=== PATIENT | male | born 1980 | race Caucasian/White ===

== ENCOUNTER 2017-01-23 13:50 | Inpatient (IN) | payer OTHER ==
[2017-01-23 14:50] VITALS: BMI 32.3
--- NOTE | 2017-01-23 15:36 | HP ---
COWS - Scale Resting Pulse: 0= [place] 80 or Below Sweatin=Flushed/Facial Moisture Restless Observation: 1= Difficult to Sit Still Pupil Size: 0= Normal to Room Light Bone or Joint Aches: 2= Severe Diffuse Aches Runny Nose/ Eye Tearin= Runny Nose/Eyes GI Upset > 30mins: 2= Nausea/Diarrhea Tremor Observation: 2= Slight Tremor Visible Yawning Observation: 1= 1-2x During Session Anxiety or Irritability: 2=Irritable/Anxious Goose Flesh Skin: 0=Smooth Skin COWS Score: 14 CIWA Score - CIWA Score Nausea/Vomitin-Mild Nausea/No Vomiting Muscle Tremors: 4-Moderate,w/Arms Extend Anxiety: 4-Mod. Anxious/Guarded Agitation: 4-Moderately Restless Paroxysmal Sweats: 3 Orientation: 0-Oriented Tacttile Disturbances: 1-Very Mild Itch/Numbness Auditory Disturbances: 0-None Visual Disturbances: 0-None Headache: 0-None Present CIWA-Ar Total Score: 17 Admission ROS S - HPI Chief Complaint: Withdrawal sx. Allergies/Adverse Reactions: Allergies Allergy/AdvReac Type Severity Reaction Status Date / Time shellfish derived Allergy Severe Hives Verified 01/23/17 14:55 History of Present Illness: 36 y/o man with a long hx. of drug dependence is admitted for detox.pt. has been in previous detox,denies significant sobriety. Exam Limitations: No Limitations - Ebola screening Have you traveled outside of the country in the last 21 days: No Have you had contact with anyone from an Ebola affected area: No Do you have a fever: No - Review of Systems Constitutional: Diaphoresis EENT: reports: Nose Congestion Respiratory: reports: No Symptoms reported Cardiac: reports: No Symptoms Reported GI: reports: Nausea, Abdominal cramping : reports: No Symptoms Reported Musculoskeletal: reports: Back Pain Integumentary: reports: Sweating Neuro: reports: Tremors Endocrine: reports: No Symptoms Reported Hematology: reports: No Symptoms Reported Psychiatric: reports: No Sypmtoms Reported Other Systems: Reviewed and Negative Patient History - Patient Medical History Hx Anemia: No Hx Asthma: Yes Hx Chronic Obstructive Pulmonary Disease (COPD): No Hx Cancer: No Hx Cardiac Disorders: No Hx Congestive Heart Failure: No Hx Hypertension: No Hx Hypercholesterolemia: No Hx Pacemaker: No HX Cerebrovascular Accident: No Hx Seizures: No Hx Dementia: No Hx Diabetes: No Hx Gastrointestinal Disorders: Yes (GERD) Hx Liver Disease: No Hx Genitourinary Disorders: No Hx Sexually Transmitted Disorders: No Hx Renal Disease (ESRD): No Hx Thyroid Disease: No Hx Human Immunodeficiency Virus (HIV): No Hx Hepatitis C: No Hx Depression: Yes (controlled) Hx Suicide Attempt: No Hx Bipolar Disorder: No Hx Schizophrenia: No - Patient Surgical History Past Surgical History: Yes Hx Neurologic Surgery: No Hx Cataract Extraction: No Hx Cardiac Surgery: No Hx Lung Surgery: No Hx Breast Surgery: No Hx Breast Biopsy: No Hx Abdominal Surgery: Yes (Gastric sleeve bypass 2011) Hx Appendectomy: No Hx Cholecystectomy: No Hx Genitourinary Surgery: No Hx Section: No Hx Orthopedic Surgery: No Anesthesia Reaction: No - PPD History Previous Implant?: Yes Documented Results: Negative w/o proof Implanted On Prior [facility] Admission?: No PPD to be Administered?: Yes - Smoking Cessation Smoking history: Current every day smoker Aproximately how many cigarettes per day: 10 Cigars Per Day: 0 Hx Chewing Tobacco Use: No Initiated information on smoking cessation: Yes 'Breaking Loose' booklet given: 01/23/17 - Substance & Tx. History Hx Alcohol Use: No Hx Substance Use: Yes Substance Use Type: Heroin, Tranquilizers Hx Substance Use Treatment: Yes (detox) - Substances Abused Heroin Route: Injection Frequency: Daily Amount used: 5 BAGS Age of first use: 34 Date of Last Use: 01/23/17 Alprazolam (Xanax) Route: Oral Frequency: Daily Amount used: 6mg Age of first use: 35 Date of Last Use: 01/22/17 Family Disease History - Family Disease History Family Disease History: Diabetes: Brother, Heart Disease: Mother (HTN) Admission Physical Exam [facility] - Vital Signs Vital Signs: Vital Signs - 24 hr 01/23/17 01/23/17 14:47 14:55 Temperature 96.4 F L 96.4 F L Pulse Rate 60 60 Respiratory 20 20 Rate Blood Pressure 92/57 92/57 - Physical General Appearance: Yes: Tremorous, Irritable, Sweating, Anxious HEENTM: Yes: Nasal Congestion, Rhinorrhea Respiratory: Yes: Chest Non-Tender, Lungs Clear, Normal Breath Sounds Neck: Yes: Supple Breast: Yes: Breast Exam Deferred Cardiology: Yes: Regular Rhythm, Regular Rate, S1, S2 Abdominal: Yes: Normal Bowel Sounds, Soft Genitourinary: Yes: Within Normal Limits Back: Yes: Within Normal Limits Extremities: Yes: Tremors Neurological: Yes: Fully Oriented, Alert Integumentary: Yes: Diaphoresis, Track Minor Lymphatic: Yes: Within Normal Limits - Diagnostic (1) Opioid dependence with withdrawal Current Visit: Yes Status: Acute (2) Sedative, hypnotic or anxiolytic dependence with withdrawal, uncomplicated Current Visit: Yes Status: Acute (3) Gastric bypass status for obesity Current Visit: Yes Status: Acute Cleared for Admission [facility] - Detox or Rehab [facility] Level of Care: Medically Managed Detox Regimen/Protocol: Methadone/Valium [facility] Breath Alcohol Content Breath Alcohol Content: 0 Urine Drug Screen - Results Drug Screen Negative: No Urine Drug Screen Results: OPI-Opiates, AMP-Amphetamines, MTD-Methadone
[2017-01-23] MEDS ORDERED: ACETAMINOPHEN 325 MG TABLET (FP) PO PRN (15:42)
[2017-01-23] MEDS ORDERED: MENTHOL/PHENOL 1 EACH UD MM PRN (15:42)
[2017-01-23] MEDS ORDERED: MAGNESIUM CITRATE 300 ML BOTTLE PO PRN (15:42)
[2017-01-23] MEDS ORDERED: P-EPHED 60MG/TRIPROLIDI 2.5MG TABLET PO PRN (15:42)
[2017-01-23] MEDS ORDERED: diphenhydrAMINE HCL 50 MG CAPSULE PO PRN (15:42)
[2017-01-23] MEDS ORDERED: LOPERAMIDE HCL 2 MG CAPSULE PO PRN (15:42)
[2017-01-23] MEDS ORDERED: MAGNESIUM HYDROX 2400MG/30ML ORAL SUSPENSION 30 ML CUP PO PRN (15:42)
[2017-01-23] MEDS ORDERED: IBUPROFEN 400 MG TABLET (FP) PO PRN (15:42)
[2017-01-23] MEDS ORDERED: MAG HYDROX/AL HYDROX/SIMETH 30 ML UNIT-DOSE CUP PO PRN (15:42)
[2017-01-23] MEDS ORDERED: METHADONE HCL 10 MG TABLET (FOR DETOX USE ONLY) PO ONE ×2 (15:42→23:00)
[2017-01-23] MEDS ORDERED: NICOTINE POLACRILEX 2 MG GUM BUC PRN (15:42)
[2017-01-23] MEDS ORDERED: guaiFENesin/D-METHORPHAN HB 10 ML UNIT-DOSE CUPS PO PRN (15:42)
[2017-01-23] MEDS ORDERED: diazePAM 5 MG TABLET PO ONE (15:42)
[2017-01-23] MEDS ORDERED: ZOLPIDEM TARTRATE 5 MG TABLET PO PRN (15:46)
[2017-01-23] MEDS: NICOTINE 21 MG/24 HOURS TOPICAL PATCH TD SCH (16:47)
[2017-01-23] MEDS: diazePAM 5 MG TABLET PO SCH (22:18)
[2017-01-23] MEDS: THIAMINE HCL 100 MG TABLET (FP) PO SCH (22:18)
[2017-01-24] MEDS: diazePAM 5 MG TABLET PO SCH ×3 (05:47→22:16)
[2017-01-24] MEDS: diazePAM 5 MG TABLET PO PRN ×3 (08:39→18:08)
[2017-01-24] MEDS ORDERED: METHADONE HCL 10 MG TABLET (FOR DETOX USE ONLY) PO SCH (10:00)
[2017-01-24] MEDS: PRENATAL VITAMINS W/ FOLIC ACID TABLET (FP) PO SCH (10:29)
[2017-01-24] MEDS: NICOTINE 21 MG/24 HOURS TOPICAL PATCH TD SCH (10:29)
[2017-01-24 11:16] LABS: ALBUMIN 2.8 g/dl (3.4-5.0); ANION GAP 5 (8-16); BILIRUBIN,TOTAL 0.4 mg/dL (0.2-1.0); CALCIUM 8.3 mg/dL (8.5-10.1); CO2 31 mmol/L (21-32); CREATININE 0.4 mg/dL (0.7-1.3); GLUCOSE,RANDOM 72 mg/dL (74-106); SGOT/AST 14 U/L (15-37); SGPT/ALT 16 U/L (12-78); TOT PROT 6.2 g/dl (6.4-8.2)
[2017-01-24 11:17] LABS: ALK PHOS 87 U/L (45-117)
[2017-01-24 11:33] LABS: URINE APPEARANCE CLEAR; URINE BILIRUBIN NEGATIVE (NEGATIVE); URINE BLOOD NEGATIVE (NEGATIVE); URINE COLOR YELLOW; URINE GLUCOSE (UA) NEGATIVE (NEGATIVE); URINE KETONE NEGATIVE (NEGATIVE); URINE LEUK ESTERASE NEGATIVE (NEGATIVE); URINE NITRITE NEGATIVE (NEGATIVE); URINE PROTEIN NEGATIVE (NEGATIVE); URINE UROBILINOGEN 2.0 E.U/dl E.U./dl (0.2-1.0)
[2017-01-24 11:43] LABS: MCH 30.5 pg (25.7-33.7); MCHC 33.5 g/dl (32.0-35.9); MEAN CELL VOLUME 90.9 fl (80-96); MEAN PLT VOLUME 9.7 fl (7.5-11.1); PLATELET COUNT 146 K/MM3 (134-434); RDW 13.3 % (11.9-15.9); WHITE BLOOD COUNT 4.4 K/mm3 (4.0-10.0)
--- NOTE | 2017-01-24 11:50 | PN ---
[facility] CIWA - CIWA Score Nausea/Vomitin Muscle Tremors: 3 Anxiety: 3 Agitation: 2 Paroxysmal Sweats: 1-Minimal Palms Moist Orientation: 0-Oriented Tacttile Disturbances: 1-Very Mild Itch/Numbness Auditory Disturbances: 1-Very Mild Visual Disturbances: 1-Very Mild Sensitivity Headache: 2-Mild CIWA-Ar Total Score: 17 [facility] COWS - Scale Resting Pulse: 0= [place] 80 or Below Sweatin= Chills/Flushing Restless Observation: 3= Extraneous Movement Pupil Size: 1= Pupils >than Normal Bone or Joint Aches: 2= Severe Diffuse Aches Runny Nose/ Eye Tearin= Runny Nose/Eyes GI Upset > 30mins: 3= Vomiting/Diarrhea Tremor Observation of Outstretched Hands: 2= Slight Tremor Visible Yawning Observation: 1= 1-2x During Session Anxiety or Irritability: 2=Irritable/Anxious Goose Flesh Skin: 0=Smooth Skin COWS Score: 17 [facility] Progress Note (SOAP) Subjective: ALERT,IRRITABLE,ANXIOUS,INTERRUPTED SLEEP,TREMOR,PAIN IN THE BODY AND BACK Objective: 01/24/17 11:48 Vital Signs Temperature 97.7 F 01/24/17 10:00 Pulse Rate 66 01/24/17 10:00 Respiratory Rate 18 01/24/17 10:00 Blood Pressure 117/69 01/24/17 10:00 O2 Sat by Pulse Oximetry (%) EKG NSR 01/24/17 11:49 Laboratory Last Values Sodium 141 mmol/L (136-145) 01/24/17 08:00 Potassium 4.0 mmol/L (3.5-5.1) 01/24/17 08:00 Chloride 105 mmol/L (98-107) 01/24/17 08:00 Carbon Dioxide 31 mmol/L (21-32) 01/24/17 08:00 Anion Gap 5 (8-16) L 01/24/17 08:00 BUN 11 mg/dL (7-18) 01/24/17 08:00 Creatinine 0.4 mg/dL (0.7-1.3) L 01/24/17 08:00 Creat Clearance w eGFR > 60 (>60) 01/24/17 08:00 Random Glucose 72 mg/dL (74-106) L 01/24/17 08:00 Calcium 8.3 mg/dL (8.5-10.1) L 01/24/17 08:00 Total Bilirubin 0.4 mg/dL (0.2-1.0) 01/24/17 08:00 AST 14 U/L (15-37) L 01/24/17 08:00 ALT 16 U/L (12-78) 01/24/17 08:00 Alkaline Phosphatase 87 U/L (45-117) 01/24/17 08:00 Total Protein 6.2 g/dl (6.4-8.2) L 01/24/17 08:00 Albumin 2.8 g/dl (3.4-5.0) L 01/24/17 08:00 Urine Color Yellow 01/24/17 08:00 Urine Appearance Clear 01/24/17 08:00 Urine pH 6.0 (5.0-8.0) 01/24/17 08:00 Ur Specific [place] 1.026 (1.001-1.035) 01/24/17 08:00 Urine Protein Negative (NEGATIVE) 01/24/17 08:00 Urine Glucose (UA) Negative (NEGATIVE) 01/24/17 08:00 Urine Ketones Negative (NEGATIVE) 01/24/17 08:00 Urine Blood Negative (NEGATIVE) 01/24/17 08:00 Urine Nitrite Negative (NEGATIVE) 01/24/17 08:00 Urine Bilirubin Negative (NEGATIVE) 01/24/17 08:00 Urine Urobilinogen 2.0 e.u/dl E.U./dl (0.2-1.0) 01/24/17 08:00 Ur Leukocyte Esterase Negative (NEGATIVE) 01/24/17 08:00 LABS PENDING Assessment: 01/24/17 11:49 WITHDRAWAL SYMPTOM Plan: CONTINUE DETOX
--- NOTE | 2017-01-24 12:33 | EKG ---
Test Reason : Blood Pressure : / mmHG Vent. Rate : 069 BPM Atrial Rate : 069 BPM P-R Int : 200 ms QRS Dur : 120 ms QT Int : 410 ms P-R-T Axes : 063 032 040 degrees QTc Int : 439 ms NORMAL SINUS RHYTHM NON-SPECIFIC INTRA-VENTRICULAR CONDUCTION DELAY NO PREVIOUS ECGS AVAILABLE Confirmed by CAMERON TELLO MD ([id number]) on 01/24/2017 12:33:10 PM Referred By: Confirmed By:CAMERON TELLO MD
[2017-01-24] MEDS: THIAMINE HCL 100 MG TABLET (FP) PO SCH (22:16)
[2017-01-24] MEDS: ZOLPIDEM TARTRATE 10 MG TABLET (PARK CARE ONLY) PO PRN (22:16)
[2017-01-25] MEDS: diazePAM 5 MG TABLET PO PRN ×4 (01:52→18:59)
[2017-01-25] MEDS: NICOTINE 21 MG/24 HOURS TOPICAL PATCH TD SCH (10:33)
[2017-01-25] MEDS: PRENATAL VITAMINS W/ FOLIC ACID TABLET (FP) PO SCH (10:33)
[2017-01-25] MEDS: METHADONE HCL 5 MG TABLET (FOR DETOX USE ONLY) PO SCH (10:34)
[2017-01-25] MEDS: diazePAM 5 MG TABLET PO SCH ×2 (10:34→22:22)
[2017-01-25] MEDS ORDERED: TRIMETHOBENZAMIDE HCL 300 MG CAPSULE PO PRN (10:35)
--- NOTE | 2017-01-25 10:40 | PN ---
[facility] CIWA - CIWA Score Nausea/Vomitin-No Nausea/No Vomiting Muscle Tremors: 4-Moderate,w/Arms Extend Anxiety: 4-Mod. Anxious/Guarded Agitation: 4-Moderately Restless Paroxysmal Sweats: 3 Orientation: 0-Oriented Tacttile Disturbances: 0-None Auditory Disturbances: 0-None Visual Disturbances: 0-None Headache: 1-Very Mild CIWA-Ar Total Score: 16 [facility] COWS - Scale Resting Pulse: 0= [place] 80 or Below Sweatin=Flushed/Facial Moisture Restless Observation: 1= Difficult to Sit Still Pupil Size: 0= Normal to Room Light Bone or Joint Aches: 2= Severe Diffuse Aches Runny Nose/ Eye Tearin= Nasal Congestion GI Upset > 30mins: 0= None Tremor Observation of Outstretched Hands: 2= Slight Tremor Visible Yawning Observation: 2= >3x During Session Anxiety or Irritability: 2=Irritable/Anxious Goose Flesh Skin: 3=Piloerection COWS Score: 15 S Progress Note (SOAP) Subjective: agitation irritable sweats shakes interrupted sleep body aches Objective: 01/25/17 10:37 Vital Signs Temperature 97.5 F L 01/25/17 09:53 Pulse Rate 60 01/25/17 09:53 Respiratory Rate 18 01/25/17 09:53 Blood Pressure 106/55 01/25/17 09:53 O2 Sat by Pulse Oximetry (%) Laboratory Tests 01/24/17 01/24/17 01/24/17 08:00 08:00 08:00 WBC 4.4 RBC 3.94 L Hgb 12.0 Hct 35.8 MCV 90.9 MCHC 33.5 RDW 13.3 Plt Count 146 MPV 9.7 Sodium 141 Potassium 4.0 Chloride 105 Carbon Dioxide 31 Anion Gap 5 L BUN 11 Creatinine 0.4 L Creat Clearance w eGFR > 60 Random Glucose 72 L Calcium 8.3 L Total Bilirubin 0.4 AST 14 L ALT 16 Alkaline Phosphatase 87 Total Protein 6.2 L Albumin 2.8 L Urine Color Urine Appearance Urine pH Ur Specific [place] Urine Protein Urine Glucose (UA) Urine Ketones Urine Blood Urine Nitrite Urine Bilirubin Urine Urobilinogen Ur Leukocyte Esterase RPR Titer Nonreactive 01/24/17 08:00 WBC RBC Hgb Hct MCV MCHC RDW Plt Count MPV Sodium Potassium Chloride Carbon Dioxide Anion Gap BUN Creatinine Creat Clearance w eGFR Random Glucose Calcium Total Bilirubin AST ALT Alkaline Phosphatase Total Protein Albumin Urine Color Yellow Urine Appearance Clear Urine pH 6.0 Ur Specific [place] 1.026 Urine Protein Negative Urine Glucose (UA) Negative Urine Ketones Negative Urine Blood Negative Urine Nitrite Negative Urine Bilirubin Negative Urine Urobilinogen 2.0 e.u/dl Ur Leukocyte Esterase Negative RPR Titer awake/alert ambulating no acute distress Assessment: 01/25/17 10:39 withdrawal sx Plan: continue detox increase fluids tigan po prn motrin 600mg prn
[2017-01-25] MEDS: GABAPENTIN 400 MG CAPSULE (FP) PO SCH ×2 (11:14→22:22)
[2017-01-25] MEDS: hydrOXYzine PAMOATE 50 MG CAPSULE (FP) PO PRN ×2 (11:31→17:19)
--- NOTE | 2017-01-25 12:02 | CONSULT ---
[facility] Psychiatric Consult - Data Date of interview: 01/25/17 Admission source: [facility] Identifying data: This is 36 years old male with no psychiatric hospitalization history intoixicated with: Opioids, Xanax, Nicotine Substance Abuse History: - Smoking Cessation. Smoking history: Current every day smoker. Aproximately how many cigarettes per day: 10. Cigars Per Day: 0. Hx Chewing Tobacco Use: No. Initiated information on smoking cessation: Yes. ' Breaking Loose' booklet given: 01/23/17. - Substance & Tx. History. Hx Alcohol Use: No. Hx Substance Use: Yes. Substance Use Type: Heroin, Tranquilizers. Hx Substance Use Treatment: Yes (detox). - Substances Abused. Heroin. Route: Injection. Frequency: Daily. Amount used: 5 BAGS. Age of first use: 34. Date of Last Use: 01/23/17. Alprazolam (Xanax). Route: Oral. Frequency: Daily. Amount used: 6mg. Age of first use: 35. Date of Last Use: 01/22/17 Medical History: History of Gastric Bypass, Obesity Psychiatric History: Patient breports depression and anxiety issues, reports taking prior to admission: Ambien 10mg po qhs. Gabapentin 800mg po tid. Vistaril 50mg po prn q4 for anxiety Physical/Sexual Abuse/Trauma History: Denies Additional Comment: Ambien 10mg po qhs. Gabapentin 800mg po tid. Vistaril 50mg po prn q4 for anxiety Mental Status Exam - Mental Status Exam Alert and Oriented to: Person Cognitive Function: Fair Patient Appearance: Unkempt Mood: Sad Affect: Mood Congruent Patient Behavior: Cooperative Speech Pattern: Appropriate Voice Loudness: Normal Thought Process: Goal Oriented Thought Disorder: Being Controlled Hallucinations: Denies Suicidal Ideation: Denies Homicidal Ideation: Denies Insight/Judgement: Fair Sleep: Difficulty falling asleep Appetite: Weight gain Muscle strength/Tone: Mild Hypotonicity Gait/Station: Shuffling Additional Comments: Ambien 10mg po qhs. Gabapentin 800mg po tid. Vistaril 50mg po prn q4 for anxiety Psychiatric Findings - Problem List ([place] 1, 2,3) (1) Gastric bypass status for obesity Current Visit: Yes Status: Acute (2) Opioid dependence with withdrawal Current Visit: Yes Status: Acute (3) Sedative, hypnotic or anxiolytic dependence with withdrawal, uncomplicated Current Visit: Yes Status: Acute (4) Drug-induced mood disorder Current Visit: Yes Status: Acute - Initial Treatment Plan Initial Treatment Plan: Ambien 10mg po qhs. Gabapentin 800mg po tid. Vistaril 50mg po prn q4 for anxiety
[2017-01-25] MEDS ORDERED: ZOLPIDEM TARTRATE 10 MG TABLET (PARK CARE ONLY) PO PRN (22:00)
[2017-01-25] MEDS: THIAMINE HCL 100 MG TABLET (FP) PO SCH (22:22)
[2017-01-25] MEDS: ZOLPIDEM TARTRATE 10 MG TABLET (PARK CARE ONLY) PO PRN (22:22)
[2017-01-26] MEDS: diazePAM 5 MG TABLET PO PRN ×2 (07:49→12:24)
--- NOTE | 2017-01-26 10:39 | PN ---
[facility] Progress Note (SOAP) Subjective: interrupted sleep, sweats, anxious , achy Objective: 01/26/17 10:37 Vital Signs Temperature 97.0 F L 01/26/17 10:16 Pulse Rate 76 01/26/17 10:16 Respiratory Rate 18 01/26/17 10:16 Blood Pressure 113/62 01/26/17 10:16 O2 Sat by Pulse Oximetry (%) Vital Signs Temperature 97.0 F L 01/26/17 10:16 Pulse Rate 76 01/26/17 10:16 Respiratory Rate 18 01/26/17 10:16 Blood Pressure 113/62 01/26/17 10:16 O2 Sat by Pulse Oximetry (%) Laboratory Tests 01/24/17 01/24/17 01/24/17 08:00 08:00 08:00 WBC 4.4 RBC 3.94 L Hgb 12.0 Hct 35.8 MCV 90.9 MCHC 33.5 RDW 13.3 Plt Count 146 MPV 9.7 Sodium 141 Potassium 4.0 Chloride 105 Carbon Dioxide 31 Anion Gap 5 L BUN 11 Creatinine 0.4 L Creat Clearance w eGFR > 60 Random Glucose 72 L Calcium 8.3 L Total Bilirubin 0.4 AST 14 L ALT 16 Alkaline Phosphatase 87 Total Protein 6.2 L Albumin 2.8 L Urine Color Urine Appearance Urine pH Ur Specific [place] Urine Protein Urine Glucose (UA) Urine Ketones Urine Blood Urine Nitrite Urine Bilirubin Urine Urobilinogen Ur Leukocyte Esterase RPR Titer Hepatitis C Antibody 1.7 H 01/24/17 01/24/17 08:00 08:00 WBC RBC Hgb Hct MCV MCHC RDW Plt Count MPV Sodium Potassium Chloride Carbon Dioxide Anion Gap BUN Creatinine Creat Clearance w eGFR Random Glucose Calcium Total Bilirubin AST ALT Alkaline Phosphatase Total Protein Albumin Urine Color Yellow Urine Appearance Clear Urine pH 6.0 Ur Specific [place] 1.026 Urine Protein Negative Urine Glucose (UA) Negative Urine Ketones Negative Urine Blood Negative Urine Nitrite Negative Urine Bilirubin Negative Urine Urobilinogen 2.0 e.u/dl Ur Leukocyte Esterase Negative RPR Titer Nonreactive Hepatitis C Antibody pt aox3 in nad ambulating Assessment: 01/26/17 10:38 withdrawal sx;s Plan: cont. detox increase fluids motrin prn
[2017-01-26] MEDS: GABAPENTIN 400 MG CAPSULE (FP) PO SCH ×2 (10:47→21:42)
[2017-01-26] MEDS: diazePAM 5 MG TABLET PO SCH ×2 (10:47→21:42)
[2017-01-26] MEDS: PRENATAL VITAMINS W/ FOLIC ACID TABLET (FP) PO SCH (10:47)
[2017-01-26] MEDS: METHADONE HCL 5 MG TABLET (FOR DETOX USE ONLY) PO SCH (10:47)
[2017-01-26] MEDS: NICOTINE 21 MG/24 HOURS TOPICAL PATCH TD SCH (10:48)
[2017-01-26] MEDS: hydrOXYzine PAMOATE 50 MG CAPSULE (FP) PO PRN ×3 (13:23→22:00)
[2017-01-26] MEDS: IBUPROFEN 600 MG TABLET (FP) PO PRN (22:00)
[2017-01-26] MEDS: THIAMINE HCL 100 MG TABLET (FP) PO SCH (22:02)
[2017-01-27] MEDS: IBUPROFEN 600 MG TABLET (FP) PO PRN (05:59)
[2017-01-27] MEDS: hydrOXYzine PAMOATE 50 MG CAPSULE (FP) PO PRN (05:59)
--- NOTE | 2017-01-27 09:07 | PN ---
Psychiatric Progress Note Vital Signs: Vital Signs Period Temp Pulse Resp BP Sys/Pan Pulse Ox Last 24 Hr 96.8 F-98.1 F 66-76 18-20 93-128/58-83 Date of Session: 01/27/17 Chief Complaint:: My medications HPI: Patient asking for vistaril supply upon discharge, [place] on Vistaril 5mg po prn q4 for anxiety Current Medications: Active Medications Generic Name Dose Route Start Last Admin Trade Name Freq PRN Reason Stop Dose Admin Acetaminophen 650 mg 01/23/17 15:42 Tylenol - PO Q4H PRN FEVER OR PAIN Al Hydroxide/Mg Hydroxide 30 ml 01/23/17 15:42 Mylanta Oral Suspension - PO Q6H PRN DYSPEPSIA Diazepam 5 mg 01/27/17 10:00 Valium - PO 01/27/17 10:01 DAILY [facility] Diphenhydramine HCl 50 mg 01/23/17 15:42 Benadryl - PO HSMR1 PRN INSOMNIA Eucalyptus/Menthol/Phenol/Sorbitol 1 each 01/23/17 15:42 Cepastat Lozenge - MM Q4H PRN SORE THROAT Gabapentin 800 mg 01/25/17 11:00 01/26/17 21:42 Neurontin - PO 800 mg BID GUICHO Administration Guaifenesin 10 ml 01/23/17 15:42 Robitussin Dm - PO Q6H PRN COUGH Hydroxyzine Pamoate 50 mg 01/25/17 10:34 01/27/17 05:59 Vistaril - PO 50 mg Q4H PRN Administration FOR ITCHING Ibuprofen 600 mg 01/25/17 10:33 01/27/17 05:59 Motrin - PO 600 mg Q6H PRN Administration SEVERE PAIN Loperamide HCl 4 mg 01/23/17 15:42 Imodium - PO Q6H PRN DIARRHEA Magnesium Citrate 300 ml 01/23/17 15:42 Citroma - PO Q48H PRN CONSTIPATION Magnesium Hydroxide 30 ml 01/23/17 15:42 Milk Of Magnesia - PO DAILY PRN CONSTIPATION Methadone HCl 10 mg 01/27/17 10:00 Dolophine - PO 01/27/17 10:01 DAILY GUICHO Methadone HCl 5 mg 01/28/17 06:00 Dolophine - PO 01/28/17 06:01 DAILY@0600 GUICHO Nicotine 21 mg 01/23/17 15:45 01/26/17 10:48 Nicoderm Patch - TD 21 mg DAILY GUICHO Administration Nicotine Polacrilex 2 mg 01/23/17 15:42 Nicorette Gum - BUC Q2H PRN NICOTINE REPLACEMENT RX Multivit/Folic Acid/Iron 1 tab 01/24/17 10:00 01/26/17 10:47 Vitamins ([facility]) - PO 1 tab DAILY GUICHO Administration Pseudoephedrine/Triprolidine 1 combo 01/23/17 15:42 Actifed - PO TID PRN NASAL CONGESTION Thiamine HCl 100 mg 01/23/17 22:00 01/26/17 22:02 Vitamin B1 - PO 100 mg HS GUICHO Administration Trimethobenzamide HCl 300 mg 01/25/17 10:35 Tigan - PO QID PRN NAUSEA AND/OR VOMITING Zolpidem Tartrate 10 mg 01/25/17 22:00 01/26/17 22:00 Ambien - PO 01/28/17 21:59 10 mg HS PRN Administration INSOMNIA Medication(s) Change(s): Vistaril 50mg po prn q4 for anxiety Mental Status Exam - Mental Status Exam Alert and Oriented to: Person Cognitive Function: Fair Patient Appearance: Well Groomed Mood: Anxious Affect: Mood Congruent Patient Behavior: Cooperative Speech Pattern: Appropriate Voice Loudness: Mildly Loud Thought Process: Goal Oriented Thought Disorder: Being Controlled Hallucinations: Denies Suicidal Ideation: Denies Homicidal Ideation: Denies Insight/Judgement: Fair Sleep: Difficulty falling asleep Appetite: Weight loss Muscle strength/Tone: Normal Gait/Station: Normal Additional Comments: Zoloft 50mg po qhd. Gabapentin 300mg po tid Psychiatric Treatment Plan - Problem List (1) Gastric bypass status for obesity Current Visit: Yes (2) Opioid dependence with withdrawal Current Visit: Yes (3) Sedative, hypnotic or anxiolytic dependence with withdrawal, uncomplicated Current Visit: Yes (4) Drug-induced mood disorder Current Visit: Yes Initial treatment plan: Zoloft 50mg po qhd. Gabapentin 300mg po tid. Vistaril 50mg po qid
--- NOTE | 2017-01-27 09:22 | DS ---
[facility] Detox Discharge Summary Admission Date: 01/23/17 Discharge Date: 01/27/17 - History Present History: Opioid Dependence, Sedative Dependence - Physical Exam Results Vital Signs: Vital Signs Temperature 96.8 F L 01/27/17 07:05 Pulse Rate 66 01/27/17 07:05 Respiratory Rate 18 01/27/17 07:05 Blood Pressure 93/58 01/27/17 07:05 O2 Sat by Pulse Oximetry (%) - Treatment Hospital Course: Detox Protocol Followed, Detoxed Safely, Responded well, Discharged Condition Good, Rehab Referral Accepted - Medication Discharge Medications: Ambulatory Orders Alprazolam [Xanax Xr] 2 mg PO DAILY 01/23/17 Dextroamphetamine/Amphetamine [Adderall Xr 20 mg Capsule] 20 mg PO BID 01/23/17 Zolpidem Tartrate [Ambien] 10 mg PO HS 01/23/17 Gabapentin [Neurontin -] 800 mg PO BID #90 01/25/17 Gabapentin [Neurontin [DO NOT STOCK]] 800 mg GT TID #90 tablet 01/25/17 Zolpidem Tartrate [Ambien] 10 mg PO HS #14 tablet MDD 10 01/25/17 Hydroxyzine Pamoate [Vistaril -] 50 mg PO Q4H PRN #120 01/27/17 Hydroxyzine Pamoate [Vistaril -] 50 mg PO QID #120 capsule 01/27/17 - Diagnosis (1) Drug-induced mood disorder Current Visit: Yes Status: Acute (2) Gastric bypass status for obesity Current Visit: Yes Status: Acute (3) Opioid dependence with withdrawal Current Visit: Yes Status: Chronic (4) Sedative, hypnotic or anxiolytic dependence with withdrawal, uncomplicated Current Visit: Yes Status: Chronic - AMA Did Patient Leave Against Medical Advice: No
[2017-01-27] MEDS ORDERED: METHADONE HCL 5 MG TABLET (FOR DETOX USE ONLY) PO SCH (10:00)
[2017-01-27] MEDS ORDERED: METHADONE HCL 10 MG TABLET (FOR DETOX USE ONLY) PO SCH (10:00)
[2017-01-27] MEDS ORDERED: diazePAM 5 MG TABLET PO SCH (10:00)
[2017-01-27 10:10] VITALS: BP 98/52; PULSE 63; TEMP 97.3
[2017-01-27] MEDS: GABAPENTIN 400 MG CAPSULE (FP) PO SCH (10:11)
[2017-01-27] MEDS: NICOTINE 21 MG/24 HOURS TOPICAL PATCH TD SCH (10:12)
[2017-01-27] MEDS: PRENATAL VITAMINS W/ FOLIC ACID TABLET (FP) PO SCH (10:12)
[2017-01-28] MEDS ORDERED: METHADONE HCL 5 MG TABLET (FOR DETOX USE ONLY) PO SCH (06:00)
== END 2017-01-27 10:38 | disposition home or self-care (01) | DRG 773 ==
LOC: EDBD 13:50 → YASAS 13:50 → Y6N 14:29
PROVIDERS: ADMIT Internal Medicine; ATTEND Internal Medicine Addiction Medicine
PROC: HZ2ZZZZ Detoxification Services for Substance Abuse Treatment (ICD-10-PCS; principal; 2017-01-27)
DX: F11.23 Opioid dependence with withdrawal (principal); F13.230 Sedative, hypnotic or anxiolytic dependence with withdrawal, uncomplicated; F19.24 Other psychoactive substance dependence with psychoactive substance-induced mood disorder; Z98.84 Bariatric surgery status
CPT/HCPCS: 36415; 80053; 81003; 85027; 86593; 87522; 93005; 93010